=== PATIENT | male | born 1985 | race Hispanic/Latino ===

== ENCOUNTER 2020-07-16 20:15 | Emergency (ER) | payer OTHER ==
[2020-07-16] MEDS ORDERED: LABETALOL HCL 5 MG/ML 20ML VIAL IV ONE (21:16)
[2020-07-16] MEDS ORDERED: ACETAMINOPHEN 325 MG TAB ONE (21:50)
[2020-07-16] MEDS ORDERED: NITROGLYCERIN 1GM/1 INCH PACKET TD ONE (21:50)
== END 2020-07-16 23:17 ==
LOC: EDH 20:15
DX: R07.89 Other chest pain (principal); R03.0 Elevated blood-pressure reading, without diagnosis of hypertension; J45.909 Unspecified asthma, uncomplicated; Z72.0 Tobacco use; Z88.0 Allergy status to penicillin; Z88.2 Allergy status to sulfonamides
CPT/HCPCS: 36415; 71045; 80053; 80305; 81003; 82550; 84484 ×2; 85025; 85610; 85730; 93005 ×2; 96374; 99285; J3490